=== PATIENT | female | born 1970 | race Caucasian/White ===

== ENCOUNTER 2019-09-29 17:26 | Emergency (ER) | payer OTHER ==
--- NOTE | 2019-09-29 17:34 | PDOC ---
Rapid Medical Evaluation Time Seen by Provider: 09/29/19 17:29 Medical Evaluation: Allergies Allergy/AdvReac Type Severity Reaction Status Date / Time No Known Allergies Allergy Verified 03/12/18 19:11 09/29/19 17:29 Pt presents for evaluation of vaginal bleeding x8 days. She states she a Hysterosonogram on Saturday for evaluation of mass in her uterus. She states she was on her menstrual cycle during the procedure. She states the bleeding has increased over the past 4 days. She is going through a pad an hour. Also admits to shortness of breath, weakness and dizziness. Exam: lower abdominal tenderness Orders: labs, T&S Pt to proceed to the ER for further evaluation SECURITIES COMPLIANCE EXAMINER: Dr. Wesley Discharge Disposition - Diagnosis Vaginal bleeding - Referrals - Patient Instructions - Post Discharge Activity
[2019-09-29 17:35] VITALS: TEMP 97.7; BMI 28.3
[2019-09-29 18:19] LABS: BASO % 0.4 % (0-2.0); EOS % 1.1 % (0-4.5); HEMOGLOBIN 14.2 GM/dL (10.7-15.3); MCH 32.4 pg (25.7-33.7); MCHC 33.8 g/dl (32.0-36.0); MEAN CELL VOLUME 95.7 fl (80-96); MEAN PLT VOLUME 9.4 fl (7.5-11.1); MONO % 6.5 % (3.8-10.2); PLATELET COUNT 202 K/MM3 (134-434); RBC 4.39 M/mm3 (3.60-5.2); RDW 13.4 % (11.6-15.6); WHITE BLOOD COUNT 8.3 K/mm3 (4.0-10.0)
[2019-09-29 18:30] LABS: INR 0.98 (0.83-1.09); PROTHROMBIN TIME (PATIENT) 11.6 SEC (9.7-13.0)
[2019-09-29 18:40] LABS: ALBUMIN 3.5 g/dl (3.4-5.0); BILIRUBIN,TOTAL 0.2 mg/dL (0.2-1); BLOOD UREA NITROGEN 10.4 mg/dL (7-18); CALCIUM 9.2 mg/dL (8.5-10.1); POTASSIUM 4.2 mmol/L (3.5-5.1); TOT PROT 7.4 g/dl (6.4-8.2)
[2019-09-29 18:46] LABS: EPI CELLS 0.5 /HPF (0-5/HPF); HYALINE CASTS 1 /lpf (0-8); URINE APPEARANCE CLEAR; URINE BACTERIA 9.8 /hpf (NEGATIVE); URINE BILIRUBIN NEGATIVE (NEGATIVE); URINE COLOR YELLOW; URINE GLUCOSE (UA) NEGATIVE (NEGATIVE); URINE KETONE NEGATIVE (NEGATIVE); URINE LEUK ESTERASE NEGATIVE (NEGATIVE); URINE NITRITE NEGATIVE (NEGATIVE); URINE PROTEIN NEGATIVE (NEGATIVE); URINE RBC 63 /hpf (0-4); URINE UROBILINOGEN 0.2 mg/dL (0.2-1.0); URINE WBC 1 /hpf (0-5)
--- NOTE | 2019-09-29 19:21 | PDOC ---
*Physical Exam - Vital Signs Last Vital Signs Temp Pulse Resp BP Pulse Ox 97.7 F 73 18 118/73 97 09/29/19 17:30 09/29/19 17:30 09/29/19 17:30 09/29/19 17:30 09/29/19 17:30 ED Treatment Course - LABORATORY CBC & Chemistry Diagram: 09/29/19 17:42 09/29/19 17:42 - ADDITIONAL ORDERS Additional order review: Laboratory Results 09/29/19 09/29/19 09/29/19 17:42 17:42 17:42 PT with INR 11.60 INR 0.98 Sodium Potassium Chloride Carbon Dioxide Anion Gap BUN Creatinine Est GFR (CKD-EPI)AfAm Est GFR (CKD-EPI)NonAf Random Glucose Calcium Total Bilirubin AST ALT Alkaline Phosphatase Total Protein Albumin Urine Color Yellow Urine Appearance Clear Urine pH 6.0 D Ur Specific [place] 1.013 Urine Protein Negative Urine Glucose (UA) Negative Urine Ketones Negative Urine Blood 3+ H Urine Nitrite Negative Urine Bilirubin Negative Urine Urobilinogen 0.2 Ur Leukocyte Esterase Negative Urine WBC (Auto) 1 Urine RBC (Auto) 63 Urine Casts (Auto) 1 U Epithel Cells (Auto) 0.5 Urine Bacteria (Auto) 9.8 Urine HCG, Qual Negative 09/29/19 17:42 PT with INR INR Sodium 139 Potassium 4.2 Chloride 108 H Carbon Dioxide 28 Anion Gap 3 L BUN 10.4 Creatinine 1.0 Est GFR (CKD-EPI)AfAm 76.07 Est GFR (CKD-EPI)NonAf 65.64 Random Glucose 94 Calcium 9.2 Total Bilirubin 0.2 AST 23 ALT 27 Alkaline Phosphatase 63 Total Protein 7.4 Albumin 3.5 Urine Color Urine Appearance Urine pH Ur Specific [place] Urine Protein Urine Glucose (UA) Urine Ketones Urine Blood Urine Nitrite Urine Bilirubin Urine Urobilinogen Ur Leukocyte Esterase Urine WBC (Auto) Urine RBC (Auto) Urine Casts (Auto) U Epithel Cells (Auto) Urine Bacteria (Auto) Urine HCG, Qual 09/29/19 17:42 RBC 4.39 MCV 95.7 MCHC 33.8 RDW 13.4 MPV 9.4 Neutrophils % 50.0 D Lymphocytes % 42.0 H D Monocytes % 6.5 D Eosinophils % 1.1 D Basophils % 0.4 Medical Decision Making - Medical Decision Making 09/29/19 19:21 Patient seen by the advanced practice provider under my supervision. Ancillary testing reviewed as necessary. I agree with plan as outlined by the advanced practice provider. Discharge - Discharge Information Problems reviewed: Yes Clinical Impression/Diagnosis: Vaginal bleeding Disposition: HOME - Follow up/Referral Referrals: Maria Elena Rodriguez MD [Staff Physician] - Call tomorrow Aileen Guido MD [Primary Care Provider] - - Patient Discharge Instructions Patient Printed Discharge Instructions: DI for Vaginal Bleeding Additional Instructions: Return to the ER if you are soaking 2 pads per hour, severe abdominal pain, or worsening symptoms. Please follow-up in Dr. Gerardo office tomorrow - Post Discharge Activity Work/Back to School Note: Back to Work
--- NOTE | 2019-09-29 19:28 | PDOC ---
History of Present Illness - General Chief Complaint: Vaginal Bleeding Stated Complaint: VAGINAL BLEEDING Time Seen by Provider: 09/29/19 17:29 History Source: Patient - History of Present Illness Initial Comments: 09/29/19 19:19 49 YEAR OLD FEMALE with vaginal bleeding, cramping x 8 days. patient reports she had " HSN" procedure with laboratory machinist 4 days. patient reports that since then she has been soaking through 1 pads per hour. patient reports dizziness and fatigue. denies shortness of breath DRAPERY EXAMINER: Dr. prajapati PHMX: uterine mass Past History - Past Medical History Allergies/Adverse Reactions: Allergies Allergy/AdvReac Type Severity Reaction Status Date / Time No Known Allergies Allergy Verified 03/12/18 19:11 Home Medications: Ambulatory Orders Meclizine HCl 25 mg PO PRN #10 tablet 03/12/18 COPD: No DVT: No Diabetes: No HTN: No Hypercholesterolemia: No Other medical history: back pain - Psycho Social/Smoking Cessation Hx Smoking History: Never smoked Have you smoked in the past 12 months: No Hx Alcohol Use: No Drug/Substance Use Hx: No Substance Use Type: None Review of Systems - Review of Systems Able to Perform ROS?: Yes Is the patient limited Thai proficient: No Constitutional: No: Symptoms Reported, See HPI, Chills, Diaphoresis, Fever, Loss of Appetite, Malaise, Night Sweats, Weakness, Weight Stable, Unintentional Wgt. Loss, Unexplained wgt Loss, Other Cardiac (ROS): Yes: Lightheadedness *Physical Exam - Vital Signs Last Vital Signs Temp Pulse Resp BP Pulse Ox 97.7 F 73 18 118/73 97 09/29/19 17:30 09/29/19 17:30 09/29/19 17:30 09/29/19 17:30 09/29/19 17:30 - Physical Exam General Appearance: Yes: Appropriately Dressed Respiratory/Chest: positive: Lungs Clear, Normal Breath Sounds Cardiovascular: positive: Regular Rhythm, Regular Rate Female Pelvic Exam: positive: normal external exam, cervical os closed, other ( vaginal bleeding with clots, ) Extremity: positive: Normal Capillary Refill Integumentary: positive: Normal Color, Dry, Warm Neurologic: positive: Fully Oriented, Alert ED Treatment Course - LABORATORY CBC & Chemistry Diagram: 09/29/19 17:42 09/29/19 17:42 - ADDITIONAL ORDERS Additional order review: Laboratory Results 09/29/19 09/29/19 09/29/19 17:42 17:42 17:42 PT with INR 11.60 INR 0.98 Sodium Potassium Chloride Carbon Dioxide Anion Gap BUN Creatinine Est GFR (CKD-EPI)AfAm Est GFR (CKD-EPI)NonAf Random Glucose Calcium Total Bilirubin AST ALT Alkaline Phosphatase Total Protein Albumin Urine Color Yellow Urine Appearance Clear Urine pH 6.0 D Ur Specific [place] 1.013 Urine Protein Negative Urine Glucose (UA) Negative Urine Ketones Negative Urine Blood 3+ H Urine Nitrite Negative Urine Bilirubin Negative Urine Urobilinogen 0.2 Ur Leukocyte Esterase Negative Urine WBC (Auto) 1 Urine RBC (Auto) 63 Urine Casts (Auto) 1 U Epithel Cells (Auto) 0.5 Urine Bacteria (Auto) 9.8 Urine HCG, Qual Negative 09/29/19 17:42 PT with INR INR Sodium 139 Potassium 4.2 Chloride 108 H Carbon Dioxide 28 Anion Gap 3 L BUN 10.4 Creatinine 1.0 Est GFR (CKD-EPI)AfAm 76.07 Est GFR (CKD-EPI)NonAf 65.64 Random Glucose 94 Calcium 9.2 Total Bilirubin 0.2 AST 23 ALT 27 Alkaline Phosphatase 63 Total Protein 7.4 Albumin 3.5 Urine Color Urine Appearance Urine pH Ur Specific [place] Urine Protein Urine Glucose (UA) Urine Ketones Urine Blood Urine Nitrite Urine Bilirubin Urine Urobilinogen Ur Leukocyte Esterase Urine WBC (Auto) Urine RBC (Auto) Urine Casts (Auto) U Epithel Cells (Auto) Urine Bacteria (Auto) Urine HCG, Qual 09/29/19 17:42 RBC 4.39 MCV 95.7 MCHC 33.8 RDW 13.4 MPV 9.4 Neutrophils % 50.0 D Lymphocytes % 42.0 H D Monocytes % 6.5 D Eosinophils % 1.1 D Basophils % 0.4 ED Progress Note - Progress Note Progress Note: 09/29/19 19:22 A: vaginal bleeding P: CBC CMP TVUS laboratory machinist consult Medical Decision Making - Medical Decision Making ultrasound: Stable 1.7 cm intramural uterine lesion probably representing a leiomyoma. Endometrial thickening appears unremarkable. Left ovary unremarkable right ovary could not be visualized 09/29/19 21:[address] prajapati. recommends discharge and strict return precautions. patient to follow up with DRAPERY EXAMINER tomorrow. 09/30/19 02:32 Discharge - Discharge Information Problems reviewed: Yes Clinical Impression/Diagnosis: Vaginal bleeding Disposition: HOME - Follow up/Referral Referrals: Aileen Guido MD [Primary Care Provider] - Maria Elena Rodriguez MD [Staff Physician] - Call tomorrow - Patient Discharge Instructions Patient Printed Discharge Instructions: DI for Vaginal Bleeding Additional Instructions: Return to the ER if you are soaking 2 pads per hour, severe abdominal pain, or worsening symptoms. Please follow-up in Dr. Prajapati office tomorrow - Post Discharge Activity Work/Back to School Note: Back to Work
[2019-09-29 21:19] VITALS: BP 127/91; PULSE 79
== END 2019-09-29 21:19 | disposition home or self-care (01) ==
LOC: JER 17:26
DX: N99.820 Postprocedural hemorrhage of a genitourinary system organ or structure following a genitourinary system procedure (principal); D25.9 Leiomyoma of uterus, unspecified
CPT/HCPCS: 36415; 76830-TC; 80053; 81003; 84703; 85025; 85610; 86850; 86900; 86901; 87077; 87086; 99284-25

== ENCOUNTER 2021-01-28 10:34 | Emergency (ER) | payer OTHER ==
[2021-01-28 10:42] VITALS: BP 149/83; PULSE 87; TEMP 98.7; BMI 29.0
[2021-01-28] MEDS ORDERED: KETOROLAC TROMETHAMINE 60 MG/2 ML VIAL IM ONE (12:12)
[2021-01-28] MEDS ORDERED: KETOROLAC TROMETHAMINE 60 MG/2 ML VIAL ONE (12:14)
== END 2021-01-28 12:32 | disposition home or self-care (01) ==
LOC: JERFT 10:34 → JER 10:34 → JERFT 12:32
PROC: 3E0233Z Introduction of Anti-inflammatory into Muscle, Percutaneous Approach (ICD-10-PCS; principal; 2021-01-28)
DX: M54.5 Low back pain (principal)
CPT/HCPCS: 99284-25